=== PATIENT | female | born 1945 | race Caucasian/White ===

== ENCOUNTER 2023-10-19 10:13 | Day surgery (SDC) | payer OTHER ==
[2023-10-18 09:34] LABS: Absolute Basophils 0.1 K/uL (0-0.5); Absolute Eosinophils 0.3 K/uL (0-0.5); Absolute Lymphocytes (CBC) 2.2 K/uL (0.7-4.9); Absolute Monocytes 0.5 K/uL (0.1-1.3); Absolute Neutrophil 2.2 K/uL (1.8-8.0); Eosinophils % 5.2 % (0-4.4); Hematocrit 38.3 % (36.0-45.0); Hemoglobin 12.8 g/dL (12.0-15.0); Lymphocytes % 42.2 % (15.3-44.8); MCH 30.8 pg (27.0-35.0); MCHC 33.4 g/dL (32.0-36.0); MCV 92.1 fL (80-100); MPV 8.6 fL (7.6-11.3); Monocytes % 9.9 % (3.3-12.3); Neutrophils % 41.7 % (41.7-73.7); Nucleated Red Blood Cells % 0.1 % (0-0); Platelets 222 thou/uL (152-406); RBC Red Blood Cell Count 4.16 M/uL (3.86-4.86); Red Cell Distribution Width 13.8 % (12.1-15.2)
[2023-10-18 09:52] LABS: Anion Gap 7.3 mEq/L (5.0-15.0); Potassium 3.3 mEq/L (3.5-5.1)
[2023-10-18 10:29] LABS: Blood Morphology Comment NOT SEEN (NOT SEEN); Differential Total Cells Count 100; Eosinophils 7 % (0-3); Lymphocytes 50 % (15-42); Monocytes 10 % (0-10); Platelet Estimate ADEQ; Segmented Neutrophils 33 % (40-80)
--- NOTE | 2023-10-18 16:14 | EKG ---
Test Date: 2023-10-18 Test Time: 08:17:26 Electrotype Servicer: NEREYDA MEASUREMENT RESULTS: Intervals: Rate: 52 FL: 198 QRSD: 82 QT: 430 QTc: 399 [place]: P: 67 FL: 198 QRS: 12 T: 66 INTERPRETIVE STATEMENTS: Sinus bradycardia Low voltage QRS Borderline ECG Compared to ECG 03/31/2023 08:55:13 Low QRS voltage now present Sinus rhythm no longer present Electronically Signed On 10-18-23 16:13:53 CDT by Adelso Cabral
[2023-10-19] MEDS: Ringers Lactate 1,000 ML IV ONE (10:40)
[2023-10-19] MEDS ORDERED: LIDOCAINE 1% MPF 30 ML VIAL ONE (11:30)
[2023-10-19] MEDS ORDERED: GLYCOPYRROLATE 0.2 MG/ML SYR ONE (11:31)
[2023-10-19] MEDS ORDERED: propofoL 200 MG/20 ML VIAL IV ONE ×2 (11:31→12:10)
[2023-10-19 14:37] VITALS: BP 115/55; TEMP 97.5; O2SAT 99
== END 2023-10-19 13:18 | disposition home or self-care (01) ==
LOC: OR 10:13
PROVIDERS: ATTEND Surgery
PROC: 0DBM8ZX Excision of Descending Colon, Via Natural or Artificial Opening Endoscopic, Diagnostic (ICD-10-PCS; principal; 2023-10-19 12:00)
DX: Z12.11 Encounter for screening for malignant neoplasm of colon (principal); K57.30 Diverticulosis of large intestine without perforation or abscess without bleeding; K64.8 Other hemorrhoids; D12.4 Benign neoplasm of descending colon
CPT/HCPCS: 36415; 80048; 85025; 88304; 93005; J2001; J2704; J7120